=== PATIENT | male | born 1980 | race Caucasian/White ===

== ENCOUNTER 2021-04-14 14:03 | Emergency (ER) | payer SELFPAY ==
[~2021-04-14] VITALS: Ht 180.3 cm; Wt 127.3 kg
[2021-04-14] MEDS ORDERED: FLUO40CA PO (14:30)
[2021-04-14 16:34] VITALS: BP 158/84
== END 2021-04-14 17:31 | disposition home or self-care (01) ==
LOC: M ED 14:03
DX: F32.9 Major depressive disorder, single episode, unspecified (principal); Z79.899 Other long term (current) drug therapy